=== PATIENT | male | born 1975 | race Caucasian/White ===

== ENCOUNTER 2020-07-06 20:15 | Emergency (ER) | payer OTHER ==
[2020-07-06] MEDS ORDERED: LIDOCAINE 5% (LIDODERM) PATCH TD ONE (21:00)
[2020-07-06] MEDS ORDERED: **NOTE PATIENT COMMENT** MISC XX SCH (21:00)
[2020-07-06] MEDS ORDERED: KETOROLAC 60MG 2ML VIAL IM ONE (21:00)
--- NOTE | 2020-07-06 21:27 | REPVR ---
PROCEDURE INFORMATION: Exam: CT Thoracic Spine Without Contrast Exam date and time: 07/06/2020 9:06 PM Age: 44 years old Clinical indication: Injury or trauma; Fall; Blunt trauma (contusions or hematomas); Additional info: Intox / possible trauma TECHNIQUE: Imaging protocol: Computed tomography images of the thoracic spine without contrast. Radiation optimization: All CT scans at this facility use at least one of these dose optimization techniques: automated exposure control; mA and/or kV adjustment per patient size (includes targeted exams where dose is matched to clinical indication); or iterative reconstruction. COMPARISON: No relevant prior studies available. FINDINGS: Vertebrae: Shallow scoliosis. Otherwise unremarkable. Discs/Spinal canal/Neural foramina: No significant disc protrusion. No severe spinal canal stenosis. No significant neural foraminal narrowing. Soft tissues: Unremarkable. IMPRESSION: No no acute findings. Electronically signed by: Bismark Stock On 07/06/2020 21:27:26 PM
--- NOTE | 2020-07-06 21:30 | REPVR ---
PROCEDURE INFORMATION: Exam: CT Chest Without Contrast; Diagnostic Exam date and time: 07/06/2020 9:06 PM Age: 44 years old Clinical indication: Injury or trauma; Fall; Blunt trauma (contusions or hematomas); Additional info: Intox / possible trauma TECHNIQUE: Imaging protocol: Diagnostic computed tomography of the chest without contrast. Radiation optimization: All CT scans at this facility use at least one of these dose optimization techniques: automated exposure control; mA and/or kV adjustment per patient size (includes targeted exams where dose is matched to clinical indication); or iterative reconstruction. COMPARISON: No relevant prior studies available. FINDINGS: Lungs: Unremarkable. No consolidation. No masses. Pleural spaces: Unremarkable. No pneumothorax. No pleural effusion. Heart: Unremarkable. No cardiomegaly. No pericardial effusion. Aorta: Unremarkable. No aortic aneurysm. Lymph nodes: Unremarkable. No enlarged lymph nodes. Gallbladder and bile ducts: There has been a cholecystectomy. Bones/joints: Unremarkable. No acute fracture. Soft tissues: Unremarkable. IMPRESSION: 1. No acute findings. 2. There has been a cholecystectomy. Electronically signed by: Bismark Stock On 07/06/2020 21:30:25 PM
[2020-07-07] MEDS ORDERED: IBUP-1022 PO (06:27)
[2020-07-07] MEDS ORDERED: LIDO5DIS41 TOP (06:27)
[2020-07-07 06:53] VITALS: BP 115/50
== END 2020-07-07 06:53 | disposition home or self-care (01) ==
LOC: M ED 20:15
DX: M62.830 Muscle spasm of back (principal); F19.10 Other psychoactive substance abuse, uncomplicated; Z87.820 Personal history of traumatic brain injury